=== PATIENT | female | born 1955 | race Caucasian/White ===

== ENCOUNTER 2023-01-07 08:02 | Day surgery (SDC) | payer OTHER, SELFPAY ==
[2023-01-07] VITALS (11 sets, daily range): BP systolic 97–151; BP diastolic 63–108; PULSE 68–89; RESP 14–16; TEMP 36.2–37.4; O2SAT 94–97; BMI 26.4
[2023-01-07] MEDS: LACTATED RINGERS 1000 ML 1,000 ML 100 ML IV (08:40)
[2023-01-07] MEDS: CEFAZOLIN 2 GM INJ IVP (09:19)
--- NOTE | 2023-01-07 09:31 | W.ANESCHARGE ---
Anesthesia Charges Start Date/Time Anesthesia Start Date: 01/07/23 Anesthesia Start Time: 08:54 Stop Date/Time Anesthesia Stop Date: 01/07/23 Anesthesia Stop Time: 10:06
--- NOTE | 2023-01-07 09:58 | P.ORPRC_ITS ---
Procedure Note Date of procedure: 01/07/23 Procedure: PREOPERATIVE DIAGNOSIS: Right knee lateral meniscus tear POSTOPERATIVE DIAGNOSIS: Right knee lateral meniscus tear NAME OF OPERATION: Right knee arthroscopic subtotal lateral meniscectomy SURGEON: Cameron Valencia MD DECORATIVE GREENS CUTTER: DIVYA Barry ANESTHESIA: Spinal ESTIMATED BLOOD LOSS: 0 mL COMPLICATIONS: None SPECIMENS: None DRAINS: None PREOPERATIVE ANTIBIOTICS: Ancef 1 gram INDICATIONS: The patient is a 67-year-old with a history of right knee lateral pain. MRI scan is consistent with a lateral meniscus tear. Despite appropriate nonoperative management, including activity modification, antiinflammatories, [id number] pain medication, bracing, physical therapy, and injections they continue to have pain and disability. Operative intervention was offered. The risks, benefits and expected outcomes were discussed in detail. These included but were not limited to: Infection, bleeding, injury to blood vessel or nerve, venous thromboembolism. All questions were answered to their satisfaction. PROCEDURE: Spinal anesthesia was administered. The patient was placed supine on the operating room table. The right lower extremity was prepped and draped in the usual sterile fashion. The limb was exsanguinated with the Alex bandage. The pneumatic tourniquet was inflated to 300 mmHg. A standard anterolateral portal was established. The arthroscope was introduced. The working portal was established anteromedially. Diagnostic arthroscopy was performed with findings as follows: The suprapatellar pouch is normal. Articular surface on the patella is normal. Articular surface on the trochlea is normal. The medial gutter is normal. The medial compartment shows a focal area of grade 3 change on the medial femoral condyle, normal articular cartilage on the medial tibial plateau. The medial meniscus is normal. The notch shows the ACL to be intact. The lateral compartment shows a focal area of grade 3 change on the lateral femoral condyle, diffuse grade 3/4 change on the entirety of the lateral tibial plateau. The lateral meniscus has a complex degenerative tear of the midbody into the posterior horn. There is a large horizontal cleavage component and then a radial tear from the leading edge to the capsule, just anterior to the popliteal hiatus. The entirety of the lateral meniscus is degenerative. The lateral gutter is normal. The shaver was used to start to debride the lateral meniscus. It was apparent that the tissue was quite degenerative and unable to resist hoop stress. The midbody was debrided from the leading edge to the capsule, bisecting the menis cus. The entirety of the posterior horn was debrided with the basket and shaver. The anterior horn was contoured with the shaver through the anteromedial portal. This results in subtotal lateral meniscectomy. Unstable chondral flaps on the lateral tibial plateau, lateral femoral condyle and medial femoral condyle were debrided with the shaver, taken to a stable base. Arthroscopic instruments were removed, the portal sites were Steri-Stripped closed, the knee was infiltrated with 30 mL of 0.25% Marcaine without epinephrine. A dry dressing was applied, the tourniquet was released. Sponge and needle counts were correct x 2. The patient tolerated the procedure well. There were no apparent complications. They were carefully transferred to the hospital bed and taken to the postanesthesia care unit in satisfactory condition. PLAN: The patient will be discharged to home. They may weightbear as tolerates. Range of motion will be unrestricted. They will follow up in the office next week for a wound check.
--- NOTE | 2023-01-07 10:09 | W.ANESCHARGE ---
Anesthesia Charges Start Date/Time Anesthesia Start Date: 01/07/23 Anesthesia Start Time: 08:54 Stop Date/Time Anesthesia Stop Date: 01/07/23 Anesthesia Stop Time: 10:06
== END 2023-01-07 11:57 | disposition home or self-care (01) ==
PROVIDERS: PCP Internal Medicine; Visit Provider Orthopaedic Surgery
PROC: (CPT 29870; principal; 2023-01-07 09:15)
DX: M23.251 Derangement of posterior horn of lateral meniscus due to old tear or injury, right knee (principal)
CPT/HCPCS: 29881; 01400; J0690; J1100; J2250; J2704; J3010; J7120

== ENCOUNTER 2025-03-23 07:08 | Outpatient (CLI) | payer MEDICARE, OTHER, SELFPAY ==
--- NOTE | 2025-03-23 07:15 | MR_ITS ---
Patient: MIGUELITO RODRIGUEZ Facility:?[facility] RIS Patient ID:?[id number] Site Patient ID:?[id number]. Site :?[id number] Study:?MRI-Head Angio W/WO 13 CC DOTAREM-03/23/2025 8:18:30 AM Ordering Physician:Radha Rodriguez Final Report: EXAMINATION: MRA HEAD WITH AND WITHOUT CONTRAST DATE: 03/23/2025. HISTORY: Patient with known brain aneurysms. TECHNIQUE: 3D TOF and contrast-enhanced MRA of the head was performed. COMPARISON: MRA 02/04/2024, angiogram 10/19/2024. FINDINGS: There is an unchanged small neck remnant of the WEBed right lateral paraclinoid ICA aneurysm. There has been no interval change in the untreated 2.5mm left lateral paraclinoid ICA aneurysm. There are no new aneurysms. The rest of the intracranial vasculature is unremarkable. IMPRESSION: 1. Unchanged small neck remnant of the WEBed right lateral paraclinoid ICA aneurysm. 2. Unchanged 2.5mm left lateral paraclinoid ICA aneurysm. In retrospect this aneurysm was present on the 01/2024 MRA and is unchanged. A follow-up MRA of the head in March 2026, 2 years after treatment, will be obtained. Adam Kilgore M.D. Neurointerventional Radiologist [facility] Pager: Office/Referrals: [facility]: Dictated by: Adam Kilgore MD @ 03/23/2025 11:59:23 (Electronic Signature)
== END 2025-03-23 07:09 | disposition home or self-care (01) ==
LOC: MRI 07:10
PROVIDERS: PCP Internal Medicine; Visit Provider Radiology Neuroradiology
DX: I67.1 Cerebral aneurysm, nonruptured (principal)
CPT/HCPCS: 70546; A9575